=== PATIENT | female | born 1985 | race Caucasian/White ===

== ENCOUNTER → 2017-03-26 | Outpatient (CLI) | payer BC ==
--- NOTE | 2017-03-26 09:21 | RADIOLOGY REPORT (SQ) ---
EXAM DESCRIPTION: U/S ABDOMEN COMPLETE W/O DOP COMPLETED DATE/TIME: 03/26/2017 8:30 am REASON FOR STUDY: VIRAL INTESTINAL INFECTION, UNSPECIFIED (A08.4) RUQ PAIN (R10.11) A08.4 VIRAL INT ESTINAL INFECTION, UNSPECIFIED R10.11 RIGHT UPPER QUADRANT PAIN COMPARISON: None. TECHNIQUE: Dynamic and static grayscale images acquired of the abdomen and recorded on PACS. Additio nal selected color Doppler and spectral images recorded. LIMITATIONS: Large patient, midline bowel gas FINDINGS: PANCREAS: Not visualized LIVER: Echogenic, difficult to penetrate with the ultrasound energy from fatty infiltration. No amari s focal masses. No hepatomegaly LIVER VASCULATURE: Normal directional flow of the main portal vein and hepatic veins. GALLBLADDER: No stones. Normal wall thickness. No pericholecystic fluid. ULTRASOUND-DETECTED RUSSELL'S SIGN: Negative. INTRAHEPATIC DUCTS AND COMMON DUCT: No intrahepatic biliary ductal dilatation. Common duct difficult to visualize at the kaur hepatis and at the pancreatic head due to right upper quadrant bowel gas. INFERIOR VENA CAVA: Not well seen AORTA: No aneurysm RIGHT KIDNEY: Normal size. Normal echogenicity. No solid or suspicious masses. No hydronephros is. No calcifications. LEFT KIDNEY: Normal size. Normal echogenicity. No solid or suspicious masses. No hydronephrosi s. No calcifications. SPLEEN: Normal size. No solid masses. PERITONEAL AND PLEURAL SPACES: No ascites or effusions. OTHER: No other significant finding. IMPRESSION: Fatty liver No gallstones No ascites or splenomegaly TECHNICAL DOCUMENTATION: JOB ID: [id number]- All Rights Reserved
== END ==
LOC: RAD 07:03
PROVIDERS: ATTEND Registered Nurse General Practice
DX: A08.4 Viral intestinal infection, unspecified (principal); R10.11 Right upper quadrant pain
CPT/HCPCS: 76700

== ENCOUNTER 2017-08-27 12:26 | Emergency (ER) | payer BC ==
[2017-08-27] MEDS ORDERED: PROCHLORPERAZINE MALEATE 10 MG TABLET PO ONE (13:11)
[2017-08-27] MEDS ORDERED: DIPHENHYDRAMINE HCL 25 MG CAPSULE PO ONE (13:11)
[2017-08-27] MEDS ORDERED: NAPROXEN 250 MG TABLET PO ONE (13:11)
--- NOTE | 2017-08-27 13:12 | ER Document Report ---
ED Medical Screen (RME) - General Chief Complaint: Headache Stated Complaint: HEADACHE Time Seen by Provider: 08/27/17 13:07 Notes: 32-year-old female patient reports a 3 day history of headache beginning in her left posterior neck coming up over top of her head. She also has had vaginal bleeding for 2 weeks with clots for the past few days. She was started on a new control pill about the time the bleeding started. I have greeted and performed a rapid initial assessment of this patient. A comprehensive ED assessment and evaluation of the patient, analysis of test results and completion of the medical decision making process will be conducted by additional ED providers. TRAVEL OUTSIDE OF THE [place] IN LAST 30 DAYS: No - Related Data Allergies/Adverse Reactions: amoxicillin Allergy (Verified 08/27/17 12:27) Past Medical History - Immunizations Hx Diphtheria, Pertussis, Tetanus Vaccination: No Physical Exam - Vital signs Vitals: Temp Pulse Resp BP Pulse Ox 99.3 F 74 16 125/77 98 08/27/17 12:31 08/27/17 12:31 08/27/17 12:31 08/27/17 12:31 08/27/17 12:31 Course - Vital Signs Vital signs: Temp Pulse Resp BP Pulse Ox 99.3 F 74 16 125/77 98 08/27/17 12:31 08/27/17 12:31 08/27/17 12:31 08/27/17 12:31 08/27/17 12:31
[2017-08-27 13:35] LABS: ABSOLUTE EOSINOPHILS # (AUTO) 0.1 10^3/uL (0.0-0.6); ABSOLUTE MONOCYTES (AUTO) 0.5 10^3/uL (0.1-1.4); ABSOLUTE NEUT (AUTO) 7.4 10^3/uL (1.7-8.2); BASOPHILS % (AUTO) 0.4 % (0-2); EOSINOPHILS % (AUTO) 0.5 % (0-6); HEMATOCRIT 41.6 % (36.0-47.0); HEMOGLOBIN 14.2 g/dL (12.0-15.5); LYMPHOCYTES % (AUTO) 27.4 % (13-45); MEAN CORPUSCULAR HEMOGLOBIN 28.9 pg (27.0-33.4); MEAN CORPUSCULAR HGB CONC 34.2 g/dL (32.0-36.0); MEAN CORPUSCULAR VOLUME 85 fl (80-97); MONOCYTES % (AUTO) 4.7 % (3-13); PLATELET COUNT 340 10^3/uL (150-450); RED BLOOD COUNT 4.92 10^6/uL (3.72-5.28); RED CELL DISTRIBUTION WIDTH 13.1 % (11.5-14.0); TOTAL CELLS COUNTED % (AUTO) 100 %
--- NOTE | 2017-08-27 13:59 | ER Document Report ---
ED Headache - General Chief Complaint: Headache Stated Complaint: HEADACHE Time Seen by Provider: 08/27/17 13:07 Mode of Arrival: Ambulatory Information source: Patient TRAVEL OUTSIDE OF THE [place] IN LAST 30 DAYS: No - HPI Patient complains to provider of: Headache Patient reports: Occasional migraines. No: Brain neoplasm, Congenital anomally , Frequent migraines, Hx chronic headaches, Prior CVA, Prior neurologic eval, Prior hemorrhage, Prior TBI, CUT FILER Shunt Onset: Other - 4 DAYS Onset was: Gradual Timing: Better - AFTER MEDS @ RME Quality of pain: Achy, Dull, Throbbing Severity: Moderate Context: denies: CO exposure, Head injury, Insect bite, Meningitis exposure, Tick bite Preceding symptoms: denies: Typical of prior aura(s), Visual disturbance Associated symptoms: Dizzy, Lightheaded, Stiff neck. denies: Confusion, Double/ blurred vision, Photophobia, Trouble walking Exacerbated by: Movement Similar symptoms previously: Yes - PRESENT H.A. MORE SEVERE THAN MOST Recently seen / treated by doctor: Yes - URGENT CARE, TODAY, REFERRED TO E.D. - Related Data Allergies/Adverse Reactions: amoxicillin Allergy (Verified 08/27/17 12:27) Past Medical History - General Information source: Patient - Social History Smoking Status: Current Every Day Smoker Cigarette use (# per day): Yes Chew tobacco use (# tins/day): No Smoking Education Provided: No Frequency of alcohol use: Occasional Drug Abuse: None Lives with: Spouse/Significant other Family History: Reviewed & Not Pertinent Patient has suicidal ideation: No Patient has homicidal ideation: No - Past Medical History Cardiac Medical History: Reports: None Pulmonary Medical History: Reports: None EENT Medical History: Reports: None Neurological Medical History: Reports: None Endocrine Medical History: Reports: Hx Diabetes Mellitus Type 2 - borderline Renal/ Medical History: Reports: None. Denies: Hx Peritoneal Dialysis Malignancy Medical History: Reports: None GI Medical History: Reports: None Musculoskeltal Medical History: Reports None Psychiatric Medical History: Reports: None Surgical Hx: Negative - Immunizations Hx Diphtheria, Pertussis, Tetanus Vaccination: No Review of Systems - Review of Systems Constitutional: No symptoms reported. denies: Chills, Fever EENT: No symptoms reported Cardiovascular: No symptoms reported Respiratory: No symptoms reported Gastrointestinal: See HPI, Nausea Genitourinary: No symptoms reported Female Genitourinary: Vaginal bleeding - LAST 2 WEEKS, IS ON NEW OCP's PER OB- SECRETARY SPECIALIST Musculoskeletal: No symptoms reported Skin: No symptoms reported Neurological/Psychological: See HPI Physical Exam - Vital signs Vitals: Temp Pulse Resp BP Pulse Ox 99.3 F 74 16 125/77 98 08/27/17 12:31 18 12:31 18 12:31 18 12:31 08/27/17 12:31 Interpretation: Normal. No: Tachycardic, Tachypneic, Febrile - General General appearance: Appears well In distress: None - HEENT Head: Normocephalic Eyes: Normal, Other - NO PHOTOPHOBIA Conjunctiva: Normal Ears: Normal Nasal: Normal Mouth/Lips: Normal Mucous membranes: Normal Neck: Normal, Other - MILD TENSION & TENDERNESS L. PARASPINOUS MUSCLES C3 THRU C6 - Respiratory Respiratory status: No respiratory distress - Cardiovascular Rhythm: Regular - Back Back: Normal, Nontender - Extremities General upper extremity: Normal inspection General lower extremity: Normal inspection - Neurological Neuro grossly intact: Yes Cognition: Normal Orientation: AAOx4 - Psychological Associated symptoms: Normal affect, Normal mood - Skin Skin Temperature: Warm Skin Moisture: Dry Skin Color: Normal Skin Turgor: Elastic Course - Vital Signs Vital signs: Temp Pulse Resp BP Pulse Ox 99.3 F 74 16 125/77 98 18 12:31 18 12:31 18 12:31 18 12:31 08/27/17 12:31 - Laboratory Result Diagrams: 08/27/17 13:23 Laboratory results interpreted by me: 08/27/17 13:23 WBC 11.0 H Discharge - Discharge Clinical Impression: Headache Qualifiers: Headache type: unspecified Headache chronicity pattern: acute headache Intractability: not intractable Qualified Code(s): R51 - Headache Menorrhagia Qualifiers: Menorrahagia type: with regular cycle Qualified Code(s): N92.0 - Excessive and frequent menstruation with regular cycle Condition: Stable Disposition: HOME, SELF-CARE Instructions: Antinausea Medication ([facility]), Use of Diphenhydramine, Headache ( [facility]), Muscle Relaxers ([facility]), Oral Narcotic Medication ([facility]) Additional Instructions: REST, DRINK PLENTY OF FLUIDS. MEDS DIRECTED. CONTINUE TAKING YOUR CONTRACEPTIVE PILLS PRESCRIBED BY YOUR OB-SECRETARY SPECIALIST. FOLLOW UP WITH YOUR OB-SECRETARY SPECIALIST IF BLEEDING HAS NOT IMPROVED IN 3-4 DAYS. RETURN TO E.R. IF PROBLEMS. Prescriptions: Diazepam [Valium 5 Mg Tablet] 5 mg PO Q8HP PRN #10 tablet PRN Reason: FOR MUSCLE RELAXATION Butalb/Acetaminophen/Caffeine [Fioricet (50-325-40 mg) Tablet] 1 - 2 tab PO Q4H PRN #20 each PRN Reason: For Headache
[2017-08-27] MEDS ORDERED: DIAZEPAM 5 MG TABLET PO ONE (14:10)
[2017-08-27 14:31] VITALS: BP 115/69
== END 2017-08-27 14:31 | disposition home or self-care (01) ==
LOC: ER 12:26
DX: N92.0 Excessive and frequent menstruation with regular cycle (principal); R51 Headache; R42 Dizziness and giddiness; M43.6 Torticollis; F17.210 Nicotine dependence, cigarettes, uncomplicated; E11.9 Type 2 diabetes mellitus without complications
CPT/HCPCS: 99284; 36415; 84703; 85025; S0183